=== PATIENT | female | born 1950 | race African-American/Black ===

== ENCOUNTER 2016-03-14 17:31 | Emergency (ER) | payer OTHER ==
[~2016-03-14] VITALS: Ht 157.5 cm; Wt 81.6 kg
[~2016-03-14 17:31] MED LIST: ALBU18; ALBU18 IN; CARI350T21; HYDR-3682 PO; HYDR12.56; METO-169; METO-169 PO; [UNRECOGNIZED DRUG - OTHER] PO
[2016-03-14 18:47] LABS: Basophils # (auto) 0 uL; Basophils % (auto) 0.4 % (0.0-2.0); Eosinophils # (auto) 0.1 uL; Eosinophils % (auto) 0.8 % (0.0-7.0); Hematocrit 37.1 % (36.0-46.0); Hemoglobin 12.3 g/dL (12.2-16.2); Lymphocytes # (auto) 1.7 uL; Lymphocytes % (auto) 24.8 % (10.0-50.0); Mean Corpuscular Hemoglobin 29.9 pg (28.0-32.0); Mean Corpuscular Hgb Conc. 33.1 g/dL (32.0-36.0); Mean Corpuscular Volume 90.3 fL (80.0-100.0); Mean Platelet Volume 10.6 fL (7.4-10.4); Monocytes # (auto) 0.9 uL; Monocytes % (auto) 12.9 % (0.0-12.0); Neutrophils # (auto) 4.2 uL; Neutrophils % (auto) 61.1 % (37.0-80.0); Platelet Count (auto) 165 10^3/uL (140-450); Red Cell Distribution Width 14.4 % (11.6-16.0); White Blood Cell 6.9 10^3/uL (4.4-10.8)
[2016-03-14 19:13] LABS: Albumin 3.3 g/dL (3.4-5.0); BUN/Creatinine Ratio 12.6; Magnesium 1.9 mg/dL (1.6-2.6); Potassium 3.2 mmol/L (3.5-5.1)
[2016-03-14 19:16] LABS: Bilirubin, Total 0.4 mg/dL (0.2-1.0); Total Protein 7.1 g/dL (6.4-8.2)
[2016-03-14] MEDS ORDERED: ALBUTEROL SULF 2.5 MG/0.5ML(0.5%) NEB SOLN NEB ONE (23:15)
[2016-03-14] MEDS ORDERED: IPRATROPIUM BROM 0.5 MG/2.5ML INH SOL NEB ONE (23:15)
[2016-03-15 03:35] VITALS: BP 146/82
== END 2016-03-15 03:38 | disposition home or self-care (01) ==
LOC: ER 17:37
DX: J45.909 Unspecified asthma, uncomplicated (principal); I10 Essential (primary) hypertension; R42 Dizziness and giddiness; R53.1 Weakness; F17.210 Nicotine dependence, cigarettes, uncomplicated; R05 Cough; Z76.0 Encounter for issue of repeat prescription; Z86.73 Personal history of transient ischemic attack (TIA), and cerebral infarction without residual deficits; Z79.899 Other long term (current) drug therapy
CPT/HCPCS: 36415; 71020; 80053; 83735; 84484; 85025; 93005; 94640

== ENCOUNTER 2016-03-15 15:45 | Emergency (ER) | payer OTHER ==
[~2016-03-15] VITALS: Ht 157.5 cm; Wt 77.1 kg
[2016-03-15] MEDS ORDERED: methylPREDNISolone SOD SUCC 125 MG/2 ML VL IV ONE (16:30)
[2016-03-15] MEDS ORDERED: NALBUPHINE HCL 10 MG/1ml INJECTION IV ONE (16:30)
[2016-03-15] MEDS ORDERED: IPRATROPIUM BROM 0.5 MG/2.5ML INH SOL NEB ONE (16:30)
[2016-03-15] MEDS ORDERED: ONDANSETRON HCL 4 MG/2 ML VIAL IV ONE (16:30)
[2016-03-15] MEDS ORDERED: ALBUTEROL SULF 2.5 MG/0.5ML(0.5%) NEB SOLN NEB ONE (16:30)
[2016-03-15 16:53] LABS: Basophils # (auto) 0 uL; Basophils % (auto) 0.5 % (0.0-2.0); Eosinophils # (auto) 0 uL; Eosinophils % (auto) 0.6 % (0.0-7.0); Hematocrit 35.9 % (36.0-46.0); Hemoglobin 12.1 g/dL (12.2-16.2); Lymphocytes # (auto) 1.9 uL; Lymphocytes % (auto) 22.8 % (10.0-50.0); Mean Corpuscular Hemoglobin 30.2 pg (28.0-32.0); Mean Corpuscular Hgb Conc. 33.8 g/dL (32.0-36.0); Mean Corpuscular Volume 89.3 fL (80.0-100.0); Mean Platelet Volume 11.3 fL (7.4-10.4); Monocytes # (auto) 0.9 uL; Monocytes % (auto) 11.4 % (0.0-12.0); Neutrophils # (auto) 5.3 uL; Neutrophils % (auto) 64.7 % (37.0-80.0); Platelet Count (auto) 151 10^3/uL (140-450); Red Cell Distribution Width 14.4 % (11.6-16.0); White Blood Cell 8.2 10^3/uL (4.4-10.8)
[2016-03-15 17:12] LABS: Albumin 3.2 g/dL (3.4-5.0); BUN/Creatinine Ratio 15.2; Calcium 8.2 mg/dL (8.5-10.1); Potassium 3.1 mmol/L (3.5-5.1)
[2016-03-15 17:15] LABS: Bilirubin, Total 0.3 mg/dL (0.2-1.0); Total Protein 6.9 g/dL (6.4-8.2)
[2016-03-15] MEDS ORDERED: POTASSIUM CHL 10% (20 MEQ/15ML) ORAL SOLN PO ONE (18:45)
[2016-03-15 18:57] VITALS: BP 138/87
== END 2016-03-15 20:07 | disposition home or self-care (01) ==
LOC: EDBD 15:45 → ER 15:50
DX: J45.909 Unspecified asthma, uncomplicated (principal); E87.6 Hypokalemia; I10 Essential (primary) hypertension; F17.210 Nicotine dependence, cigarettes, uncomplicated; Z98.890 Other specified postprocedural states; Z86.73 Personal history of transient ischemic attack (TIA), and cerebral infarction without residual deficits
CPT/HCPCS: 36415; 71010; 80053; 84484; 85025; 93005; 94640; 96374; 96375; 99285; J2300; J2405; J2930

== ENCOUNTER 2016-03-16 21:05 | Inpatient (IN) | payer OTHER ==
[~2016-03-16] VITALS: Ht 160 cm; Wt 83.1 kg
[2016-03-16 21:36] LABS: Basophils # (auto) 0 uL; Basophils % (auto) 0.2 % (0.0-2.0); Eosinophils # (auto) 0 uL; Hematocrit 40.9 % (36.0-46.0); Hemoglobin 13.3 g/dL (12.2-16.2); Lymphocytes # (auto) 2.4 uL; Lymphocytes % (auto) 17.2 % (10.0-50.0); Mean Corpuscular Hemoglobin 29.5 pg (28.0-32.0); Mean Corpuscular Hgb Conc. 32.5 g/dL (32.0-36.0); Mean Corpuscular Volume 90.7 fL (80.0-100.0); Mean Platelet Volume 11.1 fL (7.4-10.4); Monocytes % (auto) 7.4 % (0.0-12.0); Neutrophils # (auto) 10.3 uL; Neutrophils % (auto) 75.2 % (37.0-80.0); Platelet Count (auto) 177 10^3/uL (140-450); Red Cell Distribution Width 14.4 % (11.6-16.0); White Blood Cell 13.7 10^3/uL (4.4-10.8)
[2016-03-16] MEDS ORDERED: methylPREDNISolone SOD SUCC 125 MG/2 ML VL IV ONE (21:45)
[2016-03-16 21:48] LABS: INR 1.01 (0.9-1.15); Partial Thromboplastin Time 26.6 sec (22.64-33.71); Prothrombin Time 10.4 sec (9.37-12.3)
[2016-03-16 21:50] LABS: Albumin 3.5 g/dL (3.4-5.0); BUN/Creatinine Ratio 20.7; Calcium 8.6 mg/dL (8.5-10.1); Potassium 3.6 mmol/L (3.5-5.1)
[2016-03-16 21:53] LABS: Bilirubin, Total 0.3 mg/dL (0.2-1.0); Total Protein 7.9 g/dL (6.4-8.2)
[2016-03-17] VITALS (7 sets, daily range): BP systolic 157–179; BP diastolic 79–94
[2016-03-17] MEDS ORDERED: ALBUTEROL SULF 2.5 MG/0.5ML(0.5%) NEB SOLN NEB ONE ×2 (00:30)
[2016-03-17] MEDS ORDERED: IPRATROPIUM BROM 0.5 MG/2.5ML INH SOL NEB ONE ×2 (00:30)
[2016-03-17 01:03] LABS: Urine Bilirubin Negative (Negative); Urine Blood TRACE /uL (Negative); Urine Color Yellow (Yellow); Urine Glucose Normal (Normal); Urine Ketone Negative (Negative); Urine Mucus FEW (None Seen); Urine Nitrite Negative (Negative); Urine RBC 3 /hpf (0 - 4); Urine Squamous Epithelial Cell FEW /hpf (<5); Urine Urobilinogen Normal (Negative); Urine pH 5.5 (5.0-8.0)
[2016-03-17] MEDS ORDERED: ASPirin 81 mg TAB PO ONE (01:45)
[2016-03-17] MEDS ORDERED: DOCUSATE SOD 100 MG CAP PO PRN (04:15)
[2016-03-17] MEDS ORDERED: cefTRIAXone 1GM/50ML D5W 50 ML IV ONE (04:15)
[2016-03-17] MEDS ORDERED: ONDANSETRON HCL 4 MG/2 ML VIAL IV PRN (04:15)
[2016-03-17] MEDS ORDERED: CARISOPRODOL 350 MG TAB PO PRN (04:15)
[2016-03-17] MEDS ORDERED: ACETAMINOPHEN 325 MG TAB PO PRN (04:15)
[2016-03-17] MEDS ORDERED: TEMAZEPAM 15 MG CAP PO PRN (04:15)
[2016-03-17] MEDS: HYDROcodone-ACET 5/325MG TAB PO PRN ×3 (04:33→18:09)
[2016-03-17] MEDS: IPRATROPIUM BROM 0.5 MG/2.5ML INH SOL NEB PRN ×3 (04:45→21:20)
[2016-03-17] MEDS: ALBUTEROL SULF 2.5 MG/0.5ML(0.5%) NEB SOLN NEB PRN ×3 (04:46→21:20)
[2016-03-17] MEDS: METOPROLOL SUCCINATE XL 50 MG TAB PO SCH (09:02)
[2016-03-17] MEDS: HCTZ 25 MG TAB PO SCH (09:02)
[2016-03-17] MEDS: ENOXAPARIN SOD 40 MG/0.4 ML SYRINGE SC SCH (09:03)
[2016-03-17] MEDS: FAMOTIDINE 20 MG TAB PO SCH ×2 (09:03→21:15)
[2016-03-17] MEDS: methylPREDNISolone SOD SUCC 125 MG/2 ML VL IV SCH ×2 (09:03→21:14)
[2016-03-17] MEDS: BUDESONIDE (INHALATION) 0.5 MG/2 ML NEB NEB SCH (20:48)
[2016-03-17] MEDS: ZOLPIDEM TARTRATE 5 MG TAB PO PRN (21:17)
[2016-03-18] MEDS: ZOLPIDEM TARTRATE 5 MG TAB PO PRN (00:09)
[2016-03-18 05:56] VITALS: BP_SYST 159; BP_SYST 162; BP_DIAS 84; BP_DIAS 87
[2016-03-18 06:08] LABS: Basophils # (auto) 0 uL; Basophils % (auto) 0.3 % (0.0-2.0); Eosinophils # (auto) 0 uL; Hematocrit 37.7 % (36.0-46.0); Hemoglobin 12.5 g/dL (12.2-16.2); Lymphocytes # (auto) 1.1 uL; Lymphocytes % (auto) 9.1 % (10.0-50.0); Mean Corpuscular Hemoglobin 30.3 pg (28.0-32.0); Mean Corpuscular Hgb Conc. 33.2 g/dL (32.0-36.0); Mean Corpuscular Volume 91.4 fL (80.0-100.0); Mean Platelet Volume 11.6 fL (7.4-10.4); Monocytes # (auto) 0.6 uL; Monocytes % (auto) 4.7 % (0.0-12.0); Neutrophils # (auto) 10.2 uL; Neutrophils % (auto) 85.9 % (37.0-80.0); Platelet Count (auto) 164 10^3/uL (140-450); Red Cell Distribution Width 13.5 % (11.6-16.0); SUSPECT VIEW TRANSMISSION; White Blood Cell 11.9 10^3/uL (4.4-10.8)
[2016-03-18 06:39] LABS: Potassium 4.4 mmol/L (3.5-5.1)
[2016-03-18 06:47] LABS: Albumin 3.2 g/dL (3.4-5.0); BUN/Creatinine Ratio 21.5; Calcium 8.7 mg/dL (8.5-10.1)
[2016-03-18] MEDS: IPRATROPIUM BROM 0.5 MG/2.5ML INH SOL NEB PRN ×3 (06:58→19:08)
[2016-03-18] MEDS: ALBUTEROL SULF 2.5 MG/0.5ML(0.5%) NEB SOLN NEB PRN ×3 (06:58→19:08)
[2016-03-18] MEDS: BUDESONIDE (INHALATION) 0.5 MG/2 ML NEB NEB SCH ×2 (06:58→19:08)
[2016-03-18 06:59] LABS: Bilirubin, Total 0.2 mg/dL (0.2-1.0); Total Protein 7.1 g/dL (6.4-8.2)
[2016-03-18 08:27] VITALS: BP 162/86
[2016-03-18] MEDS: HCTZ 25 MG TAB PO SCH (11:41)
[2016-03-18] MEDS: METOPROLOL SUCCINATE XL 50 MG TAB PO SCH (11:41)
[2016-03-18] MEDS: methylPREDNISolone SOD SUCC 125 MG/2 ML VL IV SCH ×2 (11:42→22:15)
[2016-03-18] MEDS: FAMOTIDINE 20 MG TAB PO SCH ×2 (11:42→22:15)
[2016-03-18] MEDS: cefTRIAXone 1GM/50ML D5W 50 ML IV SCH (11:43)
[2016-03-18] MEDS: ENOXAPARIN SOD 40 MG/0.4 ML SYRINGE SC SCH (11:43)
[2016-03-18 13:00] VITALS: BP 184/95
[2016-03-18] MEDS: HYDROcodone-ACET 10/325MG TAB PO PRN ×2 (16:10→20:15)
[2016-03-18 17:03] VITALS: BP 198/100
[2016-03-18] MEDS ORDERED: hydrALAZINE HCL 20 MG/ML VL IV PRN (17:30)
[2016-03-18 22:00] VITALS: BP 142/75
[2016-03-19 05:00] VITALS: BP 157/80
[2016-03-19] MEDS: IPRATROPIUM BROM 0.5 MG/2.5ML INH SOL NEB PRN (07:44)
[2016-03-19] MEDS: BUDESONIDE (INHALATION) 0.5 MG/2 ML NEB NEB SCH (07:44)
[2016-03-19] MEDS: ALBUTEROL SULF 2.5 MG/0.5ML(0.5%) NEB SOLN NEB PRN (07:44)
[2016-03-19] MEDS: cefTRIAXone 1GM/50ML D5W 50 ML IV SCH (08:36)
[2016-03-19] MEDS: HCTZ 25 MG TAB PO SCH (08:37)
[2016-03-19] MEDS: FAMOTIDINE 20 MG TAB PO SCH (08:37)
[2016-03-19] MEDS: methylPREDNISolone SOD SUCC 125 MG/2 ML VL IV SCH (08:38)
[2016-03-19] MEDS: METOPROLOL SUCCINATE XL 50 MG TAB PO SCH (08:38)
[2016-03-19] MEDS: ENOXAPARIN SOD 40 MG/0.4 ML SYRINGE SC SCH (08:38)
[2016-03-19 08:54] VITALS: BP 182/92
[2016-03-19 09:20] VITALS: BP 158/82
[2016-03-19] MEDS: HYDROcodone-ACET 10/325MG TAB PO PRN (09:31)
[2016-03-19 10:45] VITALS: BP 158/82
== END 2016-03-19 18:05 | disposition home or self-care (01) | DRG 133 ==
LOC: EDBD 21:05 → ER 21:09 → OVERFLOW 21:10 → WEST WING 03-17 05:18 → TELE-WESTW 03-18 21:07
PROVIDERS: ADMIT Nurse Practitioner; ATTEND Internal Medicine
DX: J96.00 Acute respiratory failure, unspecified whether with hypoxia or hypercapnia (principal); J44.0 Chronic obstructive pulmonary disease with (acute) lower respiratory infection; J45.901 Unspecified asthma with (acute) exacerbation; I11.9 Hypertensive heart disease without heart failure; J44.1 Chronic obstructive pulmonary disease with (acute) exacerbation; N39.0 Urinary tract infection, site not specified; J20.9 Acute bronchitis, unspecified; I73.9 Peripheral vascular disease, unspecified; F17.210 Nicotine dependence, cigarettes, uncomplicated; Z86.73 Personal history of transient ischemic attack (TIA), and cerebral infarction without residual deficits; Z83.3 Family history of diabetes mellitus; Z82.49 Family history of ischemic heart disease and other diseases of the circulatory system; Z98.890 Other specified postprocedural states
CPT/HCPCS: 36415; 70450; 71010; 80053; 81001; 83880; 84484; 85025; 85610; 85730; 87086; 93005; 94640; 96365; 96375; J0696

== ENCOUNTER 2016-07-23 22:46 | Emergency (ER) | payer OTHER ==
[~2016-07-23] VITALS: Ht 157.5 cm; Wt 77.1 kg
[2016-07-23 22:56] VITALS: BP 182/92
[2016-07-23] MEDS ORDERED: cloNIDine HCL 0.1 MG TAB ONE (22:56)
[2016-07-23] MEDS ORDERED: cloNIDine HCL 0.1 MG TAB PO ONE (23:15)
[2016-07-23 23:27] LABS: Basophils # (auto) 0.1 uL; Basophils % (auto) 0.7 % (0.0-2.0); Eosinophils # (auto) 0.2 uL; Eosinophils % (auto) 2.5 % (0.0-7.0); Hematocrit 40.5 % (36.0-46.0); Hemoglobin 13.7 g/dL (12.2-16.2); Lymphocytes # (auto) 3.5 uL; Lymphocytes % (auto) 34.9 % (10.0-50.0); Mean Corpuscular Hemoglobin 30.7 pg (28.0-32.0); Mean Corpuscular Hgb Conc. 33.9 g/dL (32.0-36.0); Mean Corpuscular Volume 90.6 fL (80.0-100.0); Mean Platelet Volume 11.4 fL (7.4-10.4); Monocytes # (auto) 0.9 uL; Monocytes % (auto) 9.1 % (0.0-12.0); Neutrophils # (auto) 5.3 uL; Neutrophils % (auto) 52.8 % (37.0-80.0); Platelet Count (auto) 199 10^3/uL (140-450); Red Cell Distribution Width 14.2 % (11.6-16.0); White Blood Cell 10.1 10^3/uL (4.4-10.8)
[2016-07-23 23:42] LABS: INR 0.95 (0.9-1.15); Partial Thromboplastin Time 27.6 sec (22.64-33.71); Prothrombin Time 10.4 sec (9.37-12.3)
[2016-07-23 23:44] LABS: Albumin 3.6 g/dL (3.4-5.0); Anion Gap 4 (5-15); Aspartate Aminotransferase 29 U/L (15-37); BUN/Creatinine Ratio 14.7; Blood Urea Nitrogen 15 mg/dL (7-18); Calcium 8.2 mg/dL (8.5-10.1); Carbon Dioxide 31 mmol/L (21-32); Chloride 110 mmol/L (98-107); GFR African American 70 mL/min; GFR Non-African American 58 mL/min; Glucose 93 mg/dL (74-106); Potassium 3.9 mmol/L (3.5-5.1); Sodium 145 mmol/L (136-145)
[2016-07-23 23:50] LABS: Alkaline Phosphatase 73 U/L (45-117); Bilirubin, Total 0.3 mg/dL (0.2-1.0); Total Protein 7.2 g/dL (6.4-8.2)
[2016-07-24 02:50] LABS: Urine Bilirubin Negative (Negative); Urine Blood Negative /uL (Negative); Urine Color Yellow (Yellow); Urine Glucose Normal (Normal); Urine Ketone Negative (Negative); Urine Nitrite Negative (Negative); Urine RBC 16 /hpf (0 - 4); Urine Squamous Epithelial Cell MOD /hpf (<5); Urine Urobilinogen Normal (Negative)
[2016-07-27] MEDS ORDERED: LISI-275 PO (10:24)
== END 2016-07-24 00:28 | disposition left against medical advice (07) ==
LOC: ER 22:46
DX: R06.02 Shortness of breath (principal); Z53.21 Procedure and treatment not carried out due to patient leaving prior to being seen by health care provider
CPT/HCPCS: 36415; 71020; 80053; 81001; 83735; 84484; 85025; 85379; 85610; 85730; 93005

== ENCOUNTER 2017-10-10 16:26 | Emergency (ER) | payer MEDICARE, OTHER ==
[~2017-10-10] VITALS: Ht 160 cm; Wt 68.5 kg
[~2017-10-10 16:26] MED LIST changes: +CARI-316; -CARI350T21; +LISI-275 PO
[2017-10-10 16:34] VITALS: BP 179/92
[2017-10-10] MEDS ORDERED: cloNIDine HCL 0.1 MG TAB PO ONE (20:45)
== END 2017-10-10 21:03 | disposition home or self-care (01) ==
LOC: ER 16:26
DX: M54.2 Cervicalgia (principal); J45.909 Unspecified asthma, uncomplicated; I10 Essential (primary) hypertension; F17.210 Nicotine dependence, cigarettes, uncomplicated; Z79.899 Other long term (current) drug therapy; Z86.73 Personal history of transient ischemic attack (TIA), and cerebral infarction without residual deficits

== ENCOUNTER 2018-06-28 08:31 | Emergency (ER) | payer MEDICARE, OTHER ==
[~2018-06-28] VITALS: Ht 157.5 cm; Wt 77.1 kg
[~2018-06-28 08:31] MED LIST changes: -CARI-316; +CARI350T22
[2018-06-28 08:37] VITALS: BP 157/72
[2018-06-28 09:55] LABS: Urine Bacteria FEW /hpf (None Seen); Urine Blood Negative /uL (Negative); Urine Specific Gravity 1.009 (1.001-1.035); Urine WBC 9 /hpf (0 - 5)
== END 2018-06-28 10:32 | disposition home or self-care (01) ==
LOC: ER 08:31
DX: N39.0 Urinary tract infection, site not specified (principal); J45.909 Unspecified asthma, uncomplicated; I10 Essential (primary) hypertension; F17.210 Nicotine dependence, cigarettes, uncomplicated; Z86.73 Personal history of transient ischemic attack (TIA), and cerebral infarction without residual deficits; Z79.899 Other long term (current) drug therapy; Z88.8 Allergy status to other drugs, medicaments and biological substances
CPT/HCPCS: 74176; 81001; 87086

== ENCOUNTER 2018-07-20 13:02 | Emergency (ER) | payer MEDICARE, OTHER ==
[~2018-07-20] VITALS: Ht 157.5 cm; Wt 77.1 kg
[~2018-07-20 13:02] MED LIST changes: -LISI-275 PO
[2018-07-20 14:32] VITALS: BP 156/78
[2018-07-20] MEDS: methylPREDNISolone SOD SUCC 125 MG/2 ML VL IV ONE ×2 (15:15→16:00)
[2018-07-20] MEDS: diphenhdrAMINE HCL 50 MG/1 ML VL IV ONE ×2 (15:15→16:00)
== END 2018-07-20 16:37 | disposition home or self-care (01) ==
LOC: ER 13:02 → EDBD 13:02 → ER 16:37
DX: T78.1XXA Other adverse food reactions, not elsewhere classified, initial encounter (principal); R22.0 Localized swelling, mass and lump, head; J45.909 Unspecified asthma, uncomplicated; I10 Essential (primary) hypertension; F17.210 Nicotine dependence, cigarettes, uncomplicated; R42 Dizziness and giddiness; Z79.899 Other long term (current) drug therapy; Z86.73 Personal history of transient ischemic attack (TIA), and cerebral infarction without residual deficits; Z91.018 Allergy to other foods; X58.XXXA Exposure to other specified factors, initial encounter
CPT/HCPCS: 96374; 96375; 99283; J1200; J2930

== ENCOUNTER 2018-12-08 17:41 | Emergency (ER) | payer MEDICARE, OTHER ==
[~2018-12-08] VITALS: Ht 157.5 cm; Wt 78.0 kg
[2018-12-08] MEDS ORDERED: DexAMETHasone SOD PHOS 10MG/1ML VIAL INJ IM ONE (20:30)
[2018-12-08 20:47] VITALS: BP 145/81
== END 2018-12-08 20:58 | disposition home or self-care (01) ==
LOC: ER 17:41 → EDBD 17:41 → ER 20:58
DX: T78.40XA Allergy, unspecified, initial encounter (principal); L50.0 Allergic urticaria; J45.909 Unspecified asthma, uncomplicated; I10 Essential (primary) hypertension; F17.210 Nicotine dependence, cigarettes, uncomplicated; Z86.73 Personal history of transient ischemic attack (TIA), and cerebral infarction without residual deficits; Z79.899 Other long term (current) drug therapy; X58.XXXA Exposure to other specified factors, initial encounter
CPT/HCPCS: 96372; 99283; J1100

== ENCOUNTER 2020-06-17 18:49 | Inpatient (IN) | payer MEDICARE, OTHER ==
[~2020-06-17] VITALS: Ht 162.6 cm; Wt 79.6 kg
[2020-06-17 20:56] LABS: Basophils # (auto) 0.1 10 ^3/uL (0-0.2); Basophils % (auto) 0.7 % (0.0-2.0); Eosinophils # (auto) 0.3 10 ^3/uL (0-0.8); Eosinophils % (auto) 2.4 % (0.0-7.0); Hematocrit 44.2 % (36.0-46.0); Lymphocytes % (auto) 36.9 % (10.0-50.0); Mean Corpuscular Hemoglobin 31.2 pg (28.0-32.0); Mean Corpuscular Hgb Conc. 33.8 g/dL (32.0-36.0); Mean Corpuscular Volume 92.2 fL (80.0-100.0); Monocytes # (auto) 0.9 10 ^3/uL (0-1.3); Monocytes % (auto) 8.5 % (0.0-12.0); Neutrophils # (auto) 5.5 10 ^3/uL (1.6-8.6); Neutrophils % (auto) 51.5 % (37.0-80.0); Nucleated Red Blood Cells % 0.2 %; Platelet Count (auto) 224 10^3/uL (140-450); Red Cell Distribution Width 14.6 % (11.8-14.3); White Blood Cell 10.7 10^3/uL (4.4-10.8)
[2020-06-17 21:18] LABS: Alanine Aminotransferase 26 U/L (13-56); Albumin 3.9 g/dL (3.4-5.0); Anion Gap 7 (5-15); Blood Urea Nitrogen 28 mg/dL (7-18); Calcium 9.3 mg/dL (8.5-10.1); Carbon Dioxide 25 mmol/L (21-32); Chloride 108 mmol/L (98-107); Glucose 88 mg/dL (74-106); Potassium 3.8 mmol/L (3.5-5.1); Sodium 140 mmol/L (136-145)
[2020-06-17 21:22] LABS: Alkaline Phosphatase 62 U/L (45-117); Aspartate Aminotransferase 16 U/L (15-37); BUN/Creatinine Ratio 27.2; Bilirubin, Total 0.4 mg/dL (0.2-1.0); GFR African American 69 mL/min; GFR Non-African American 57 mL/min; Total Protein 7.9 g/dL (6.4-8.2)
[2020-06-17] MEDS ORDERED: ASPirin 81 mg TAB PO ONE (21:30)
[2020-06-18] VITALS (7 sets, daily range): BP systolic 119–146; BP diastolic 68–83
[2020-06-18] MEDS ORDERED: ONDANSETRON HCL 4 MG/2 ML VIAL IV PRN (01:00)
[2020-06-18] MEDS ORDERED: ALBUTEROL SULF 2.5 MG/0.5ML(0.5%) NEB SOLN NEB PRN (01:00)
[2020-06-18] MEDS ORDERED: NITROGLYCERIN 0.4 MG SL TAB SL PRN (01:00)
[2020-06-18] MEDS ORDERED: TEMAZEPAM 15 MG CAP PO PRN (01:00)
[2020-06-18] MEDS ORDERED: MORPHINE SULF INJ 2 MG/ML SYRINGE 1ML IV PRN (01:00)
[2020-06-18] MEDS: PANTOPRAZOLE 40 MG TAB PO SCH (09:55)
[2020-06-18] MEDS: AZITHROMYCIN 500MG/ 250ML 250 ML IV SCH (09:55)
[2020-06-18] MEDS: ENOXAPARIN SOD 40 MG/0.4 ML SYRINGE SC SCH (09:56)
[2020-06-18] MEDS: METOPROLOL SUCCINATE XL 50 MG TAB PO SCH (09:56)
[2020-06-18] MEDS ORDERED: ASPirin 81 mg TAB PO SCH (10:00)
[2020-06-18] MEDS ORDERED: LORazepam 2MG/ML-1ML VIAL IV PRN (10:15)
[2020-06-18] MEDS: ATORVASTATIN 20 MG TAB PO SCH ×2 (10:34→21:23)
[2020-06-18] MEDS ORDERED: FLUT1AER3 INH (10:58)
[2020-06-18] MEDS ORDERED: MET50T PO (10:58)
[2020-06-18] MEDS ORDERED: ALBU108A5 INH (10:58)
[2020-06-18] MEDS ORDERED: LISI-646 PO (10:58)
[2020-06-18 11:07] LABS: Cholesterol 142 mg/dL (< 200); HDL Cholesterol 37 mg/dL (40-59); LDL Cholesterol 76 mg/dL (< 100); Triglycerides 185 mg/dL (< 150)
[2020-06-18] MEDS ORDERED: GADOTERATE MEG 10 MMOL/20ml INJ (0.5MMOL/ml) IV ONE (12:55)
[2020-06-18] MEDS ORDERED: ATORVASTATIN 20 MG TAB PO SCH (22:00)
[2020-06-19 05:28] VITALS: BP 147/80
[2020-06-19 07:12] LABS: Basophils # (auto) 0 10 ^3/uL (0-0.2); Basophils % (auto) 0.6 % (0.0-2.0); Eosinophils # (auto) 0.2 10 ^3/uL (0-0.8); Eosinophils % (auto) 2.8 % (0.0-7.0); Hematocrit 42.7 % (36.0-46.0); Hemoglobin 14.4 g/dL (12.2-16.2); Lymphocytes # (auto) 2.6 10 ^3/uL (0.4-5.4); Lymphocytes % (auto) 36.7 % (10.0-50.0); Mean Corpuscular Hemoglobin 31.1 pg (28.0-32.0); Mean Corpuscular Hgb Conc. 33.7 g/dL (32.0-36.0); Mean Corpuscular Volume 92.1 fL (80.0-100.0); Monocytes # (auto) 0.7 10 ^3/uL (0-1.3); Monocytes % (auto) 9.8 % (0.0-12.0); Neutrophils # (auto) 3.5 10 ^3/uL (1.6-8.6); Neutrophils % (auto) 50.1 % (37.0-80.0); Nucleated Red Blood Cells % 0.2 %; Platelet Count (auto) 185 10^3/uL (140-450); Red Blood Cells 4.63 10^6/uL (4.0-5.20); Red Cell Distribution Width 14.7 % (11.8-14.3)
[2020-06-19 07:50] LABS: Calcium 9.1 mg/dL (8.5-10.1)
[2020-06-19 09:23] VITALS: BP 146/87
[2020-06-19] MEDS: AZITHROMYCIN 500MG/ 250ML 250 ML IV SCH (10:16)
[2020-06-19] MEDS: ASPirin 81 mg TAB PO SCH (10:16)
[2020-06-19] MEDS: CLOPIDOGREL BISULFATE 75 MG TAB PO SCH (10:16)
[2020-06-19] MEDS: PANTOPRAZOLE 40 MG TAB PO SCH (10:17)
[2020-06-19] MEDS: METOPROLOL SUCCINATE XL 50 MG TAB PO SCH (10:18)
[2020-06-19] MEDS: ENOXAPARIN SOD 40 MG/0.4 ML SYRINGE SC SCH (10:18)
[2020-06-19 13:00] VITALS: BP 135/82
[2020-06-19] MEDS ORDERED: diphenhdrAMINE HCL 25 MG CAP PO PRN (13:45)
[2020-06-19 17:00] VITALS: BP 137/94
[2020-06-19] MEDS: ATORVASTATIN 20 MG TAB PO SCH (21:30)
[2020-06-19] MEDS: ACETAMINOPHEN 325 MG TAB PO PRN (21:39)
[2020-06-19 21:48] VITALS: BP 134/80
[2020-06-20 05:00] VITALS: BP 125/61
[2020-06-20 07:36] LABS: INR 0.98 (0.9-1.15); Partial Thromboplastin Time 27.6 sec (23.0-31.2)
[2020-06-20 09:00] VITALS: BP 137/69
[2020-06-20] MEDS: METOPROLOL SUCCINATE XL 50 MG TAB PO SCH (10:00)
[2020-06-20] MEDS: ASPirin 81 mg TAB PO SCH (10:19)
[2020-06-20] MEDS: AZITHROMYCIN 500MG/ 250ML 250 ML IV SCH (10:19)
[2020-06-20] MEDS: PANTOPRAZOLE 40 MG TAB PO SCH (10:19)
[2020-06-20] MEDS: CLOPIDOGREL BISULFATE 75 MG TAB PO SCH (10:19)
[2020-06-20] MEDS: ENOXAPARIN SOD 40 MG/0.4 ML SYRINGE SC SCH (11:06)
[2020-06-20] MEDS ORDERED: diphenhdrAMINE HCL 50 MG/1 ML VL IV ONE (11:30)
[2020-06-20] MEDS ORDERED: MIDAZOLAM HCL 5 MG/ML-1ML VIAL IV ONE (11:30)
[2020-06-20] MEDS ORDERED: fentaNYL CITRATE 100 MCG/2 ML VL IV ONE (11:30)
[2020-06-20] MEDS ORDERED: MIDAZOLAM HCL 1MG/1ML-2 ML VIAL IV ONE (13:15)
[2020-06-20 17:00] VITALS: BP 149/84
[2020-06-20 18:59] VITALS: BP 149/84
[2020-06-20] MEDS: ACETAMINOPHEN 325 MG TAB PO PRN (19:27)
[2020-06-20] MEDS: ATORVASTATIN 20 MG TAB PO SCH (21:24)
[2020-06-20 22:00] VITALS: BP 154/82
[2020-06-21 05:00] VITALS: BP 149/75
[2020-06-21] MEDS: ACETAMINOPHEN 325 MG TAB PO PRN (06:56)
[2020-06-21 09:00] VITALS: BP 157/73
[2020-06-21] MEDS: ENOXAPARIN SOD 40 MG/0.4 ML SYRINGE SC SCH (09:37)
[2020-06-21] MEDS: PANTOPRAZOLE 40 MG TAB PO SCH (09:37)
[2020-06-21] MEDS: CLOPIDOGREL BISULFATE 75 MG TAB PO SCH (09:37)
[2020-06-21] MEDS: ASPirin 81 mg TAB PO SCH (09:37)
[2020-06-21] MEDS: METOPROLOL SUCCINATE XL 50 MG TAB PO SCH (09:39)
[2020-06-21 09:45] VITALS: BP 157/73
[2020-06-21] MEDS ORDERED: AZITHROMYCIN 250 MG TAB PO SCH (10:00)
== END 2020-06-21 10:25 | disposition home or self-care (01) | DRG 64 ==
LOC: ER 18:49 → TELE 06-18 00:50 → TELE-EAST 06-18 03:21
PROVIDERS: ADMIT Nurse Practitioner; ATTEND Family Medicine
PROC: B24BZZ4 Ultrasonography of Heart with Aorta, Transesophageal (ICD-10-PCS; principal; 2020-06-20)
DX: I63.512 Cerebral infarction due to unspecified occlusion or stenosis of left middle cerebral artery (principal); J18.9 Pneumonia, unspecified organism; H53.121 Transient visual loss, right eye; G81.91 Hemiplegia, unspecified affecting right dominant side; N18.9 Chronic kidney disease, unspecified; F12.90 Cannabis use, unspecified, uncomplicated; F17.210 Nicotine dependence, cigarettes, uncomplicated; I12.9 Hypertensive chronic kidney disease with stage 1 through stage 4 chronic kidney disease, or unspecified chronic kidney disease; J45.909 Unspecified asthma, uncomplicated; Z20.822 Contact with and (suspected) exposure to COVID-19; Z79.02 Long term (current) use of antithrombotics/antiplatelets; Z79.82 Long term (current) use of aspirin; Z80.0 Family history of malignant neoplasm of digestive organs; Z82.3 Family history of stroke; Z82.49 Family history of ischemic heart disease and other diseases of the circulatory system; Z83.3 Family history of diabetes mellitus; Z86.73 Personal history of transient ischemic attack (TIA), and cerebral infarction without residual deficits
CPT/HCPCS: 36415; 70450; 70545; 70551; 71045; 80048; 80053; 80061; 84484; 85025; 85610; 85730; 86850; 86900; 86901; 87426; 93005; 93312; 93886; 96365; 99152; G0378; J2250

== ENCOUNTER 2022-05-21 10:01 | Emergency (ER) | payer OTHER ==
[~2022-05-21] VITALS: Ht 157.5 cm; Wt 66.0 kg
[~2022-05-21 10:01] MED LIST changes: +ALBU108A5 INH; -ALBU18; -ALBU18 IN; -CARI350T22; +FLUT1AER3 INH; -HYDR-3682 PO; -HYDR12.56; +LISI20TA28 PO; +MET50T PO; -METO-169; -METO-169 PO; -[UNRECOGNIZED DRUG - OTHER] PO
[2022-05-21 10:37] VITALS: BP 186/86
[2022-05-21] MEDS ORDERED: methylPREDNISolone SOD SUCC 125 MG/2 ML VL IM ONE (10:45)
[2022-05-21] MEDS ORDERED: diphenhdrAMINE HCL 50 MG/1 ML VL IM ONE (10:45)
[2022-05-21] MEDS ORDERED: METH4PAK PO (11:09)
== END 2022-05-21 11:13 | disposition home or self-care (01) ==
LOC: ER 10:01
DX: T78.40XA Allergy, unspecified, initial encounter (principal); I10 Essential (primary) hypertension; J45.909 Unspecified asthma, uncomplicated; F17.210 Nicotine dependence, cigarettes, uncomplicated; Z86.73 Personal history of transient ischemic attack (TIA), and cerebral infarction without residual deficits; Z79.899 Other long term (current) drug therapy; Z88.8 Allergy status to other drugs, medicaments and biological substances; Z91.018 Allergy to other foods; Y92.89 Other specified places as the place of occurrence of the external cause
CPT/HCPCS: 96372; 99284; J1200; J2930

== ENCOUNTER 2022-06-04 16:37 | Emergency (ER) | payer OTHER ==
[~2022-06-04] VITALS: Ht 147.3 cm; Wt 73.0 kg
[~2022-06-04 16:37] MED LIST changes: +METH4PAK PO
[2022-06-04] MEDS ORDERED: ACET-1080 PO (18:10)
[2022-06-04 18:11] VITALS: BP 186/90
[2022-06-04] MEDS ORDERED: ACETAMINOPHEN 500 MG TAB PO ONE (18:15)
== END 2022-06-04 18:31 | disposition home or self-care (01) ==
LOC: ER 16:37
DX: S62.635A Displaced fracture of distal phalanx of left ring finger, initial encounter for closed fracture (principal); J45.909 Unspecified asthma, uncomplicated; I10 Essential (primary) hypertension; F17.210 Nicotine dependence, cigarettes, uncomplicated; F12.10 Cannabis abuse, uncomplicated; Z86.73 Personal history of transient ischemic attack (TIA), and cerebral infarction without residual deficits; W20.8XXA Other cause of strike by thrown, projected or falling object, initial encounter; Y93.89 Activity, other specified; Y92.89 Other specified places as the place of occurrence of the external cause; Y99.8 Other external cause status
CPT/HCPCS: 29130; 73130

== ENCOUNTER 2024-10-27 20:33 | Emergency (ER) | payer OTHER ==
[~2024-10-27] VITALS: Ht 157.5 cm; Wt 77.2 kg
[2024-10-27 20:33] VITALS: BP 155/92; TEMP 98.8
[~2024-10-27 20:33] MED LIST changes: +ACET-1080 PO; -LISI20TA28 PO; +LISI20TA56 PO
[2024-10-27 20:37] VITALS: PULSE 91
[2024-10-27] MEDS: ALBUTEROL SULF 2.5 MG/0.5ML(0.5%) NEB SOLN NEB ONE (21:52)
[2024-10-27] MEDS: IPRATROPIUM BROM 0.5 MG/2.5ML INH SOL NEB ONE (21:52)
[2024-10-27 22:03] VITALS: RESP 18; O2SAT 96
[2024-10-27 22:08] LABS: Hematocrit 44.8 % (36.0-46.0); Hemoglobin 15.2 g/dL (12.2-16.2); Mean Corpuscular Hemoglobin 30.4 pg (28.0-32.0); Mean Corpuscular Volume 89.6 fL (80.0-100.0); Nucleated Red Blood Cells % 0.1 %
--- NOTE | 2024-10-27 22:14 | DVH ---
INDICATION: sob TECHNIQUE: Frontal view of the chest. COMPARISON: TRANSESOPH ECHOCARDIOGRAM on DOS: 06/20/20, CHEST XRAY 1 VIEW on DOS: 06/17/20 FINDINGS/IMPRESSION: The lungs are clear. The cardiomediastinal silhouette is unremarkable. No pleural effusion or pneumo thorax. No acute osseous abnormality.
[2024-10-27 22:25] LABS: Alanine Aminotransferase 17 U/L (7-40); Alkaline Phosphatase 55 U/L (46-116); Anion Gap 7 (5-15); BUN/Creatinine Ratio 28.7 (10.0-20.0); Calcium 9.9 mg/dL (8.7-10.4); Carbon Dioxide 29 mmol/L (20-31); Chloride 107 mmol/L (98-107); Glucose 100 mg/dL (74-106); Potassium 4.0 mmol/L (3.5-5.1); Sodium 143 mmol/L (136-145); Total Protein 8.0 g/dL (5.7-8.2)
[2024-10-27 22:26] LABS: Bilirubin, Total 0.7 mg/dL (0.2-1.0)
[2024-10-27 22:33] LABS: Albumin 4.8 g/dL (3.2-4.8); Blood Urea Nitrogen 27 mg/dL (9-23)
--- NOTE | 2024-10-27 23:05 | ED.PDOC ---
SOB-HPI HPI Comments HPI: 74-year-old female who came to ER for shortness a breath. Patient does have history of asthma and COPD, on home oxygen at 2 L/min. States he has been short of breath for the past 2 days. Ran out of her albuterol inhalers yesterday. Shortness a breath prompted patient to come to the ER. Patient admits to still smoke cigarettes. Initial Vitals BP: 155/92 HR: 92 RR: 20 O2: 94% Temp: 98.8 Past Medical History: Asthma, COPD, hypertension Past Surgical History: Social History: Denies ETOH, (+) smoking, and drug use. Medications: Allergies: HPI: Poor Historian. Shortness of breath since she ran out of her nebulizer at home two days ago. Patient states she has the medicine refill in the pharmacy that she has not picked it up yet. Patient continues to smoke. Patient was reassessed after the breathing treatment by ambulance and here in the ED and she feels significantly better and back to her normal self. Patient uses 2 L nasal cannula at home. REVIEW OF SYSTEMS: CONSTITUTIONAL: Denies acute: fever, diaphoresis, chills, generalized weakness. HEAD: Denies acute: headache, photophobia Eyes: Denies acute: Double vision, vision loss, eye pain, eye discharge. EARS: Denies acute: tinnitus, hearing loss, ear discharge, ear pain, THROAT: Denies acute: sore throat, swelling, difficulty swallowing , pain with swallowing, change in voice. NECK: Denies acute: neck pain, neck swelling, stiff neck. HEART: Denies acute : chest pain, palpitations, LUNGS: Denies acute: , cough, hemoptysis ABDOMEN: Denies acute: abdominal pain, Nausea, Vomiting, diarrhea, melena , hematemesis, hematochezia SKIN: Denies acute: rash, redness, lesions, itchiness. EXTREMITIES: Denies acute: calf pain, numbness, tingling, weakness, denies pain in extremity. Denies acute: Low back pain. Neuro: Denies acute: focal neurological deficit, motor or sensory focal neurological deficit, tremors, seizure like activity, confusion, dizziness, change in mental status, loss of bowel or bladder function, cauda equina like symptoms. : Denies acute: dysuria, hematuria, flank pain, increase in urinary frequency. PSYCH: Denies acute: hallucination, suicidal ideation, homicidal ideation. FEMALE: Denies acute: abnormal vaginal bleeding, foul odor, unusual discharge. PHYSICAL EXAM: General: ---no-----acute distress, awake and alert. Head: normocephalic, atraumatic. Neck: supple, trachea is midline, no swelling. Throat: Normal phonation. Eyes:, no erythema, no purulent discharge, no proptosis, no icterus. Heart: regular rate, regular rhythm, no significant murmur appreciated. Lungs: no apparent respiratory distress, Able to speak in full sentences. Minimal wheezing, no rhonchi, no crackles. No stridors Clear to auscultation bilaterally. Abdomen: non tender to palpation, non distended, soft, no guarding, no rebound, + bowel sounds. Neuro: Awake, Alert, oriented to name, self, situation, follows commands GCS=15. Speech is normal. Skin: no petechia, no purpura, no cyanosis, non-pale, not jaundice. Lower extremities: --no - Pitting edema no deformity, no focal swelling, no calf TTP. Makes eye contact. moves all four extremities. Face: no apparent facial droop. Ambulating in the ED independently. ED COURSE: DISCLAIMER: This medical document was created using an electronic medical record system with voice recognition software and computerized dictation system. Although this document has been carefully reviewed, there might still be some phonetic and typographical errors. Occasional wrong-word or "sound-alike" substitutions may have occurred due to the inherent limitations of voice recognition software. These areas are purely typographical due to imperfections of the software programs and do not reflect any compromise in the patient's medical care. Please read the chart carefully and recognize, using context, where these substitutions have occurred. Chief Complaint: Shortness of Breath Time Seen by MD: 23:05 Primary Care Provider: DES Information Source: Patient Mode of Arrival: Ambulatory Past Medical History PAST MEDICAL HISTORY: Asthma, COPD, CVA, HTN Surgical History: [employer] History: No Pertinent [employer] History Family History Family History: Family hx of DM, Family hx of Cancer Social History Smoker: Cigarettes, Less Than 1 Pack/Day Alcohol: Occasionally Drugs: Marijuana Lives In: Home Was a procedure done? Was a procedure done?: No X-Ray, Labs, Meds, VS Vital Signs Date Time Temp Pulse Resp B/P (MAP) Pulse Ox O2 Delivery O2 Flow Rate FiO2 10/27/24 22:03 18 96 Room Air* 0 21 10/27/24 20:33 98.8 92 20 155/92 94 98.8 Lab Test 10/27/24 22:39 10/27/24 21:46 Range/Units Troponin I High Sensitivity Pending 5 </=34 ng/L White Blood Count 11.2 H 4.4-10.8 10^3/uL Red Blood Count 5.00 4.0-5.20 10^6/uL Hemoglobin 15.2 12.2-16.2 g/dL Hematocrit 44.8 36.0-46.0 % Mean Corpuscular Volume 89.6 80.0-100.0 fL Mean Corpuscular Hemoglobin 30.4 28.0-32.0 pg Mean Corpuscular Hemoglobin Concent 33.9 32.0-36.0 g/dL Red Cell Distribution Width 15.1 H 11.8-14.3 % Platelet Count 223 140-450 10^3/uL Mean Platelet Volume 9.7 6.9-10.8 fL Neutrophils (%) (Auto) 55.5 37.0-80.0 % Lymphocytes (%) (Auto) 32.2 10.0-50.0 % Monocytes (%) (Auto) 9.0 0.0-12.0 % Eosinophils (%) (Auto) 2.7 0.0-7.0 % Basophils (%) (Auto) 0.6 0.0-2.0 % Neutrophils # (Auto) 6.2 1.6-8.6 10 ^3/uL Lymphocytes # (Auto) 3.6 0.4-5.4 10 ^3/uL Monocytes # (Auto) 1.0 0-1.3 10 ^3/uL Eosinophils # (Auto) 0.3 0-0.8 10 ^3/uL Basophils # (Auto) 0.1 0-0.2 10 ^3/uL Nucleated Red Blood Cells 0.1 % Sodium Level 143 136-145 mmol/L Potassium Level 4.0 3.5-5.1 mmol/L Chloride Level 107 98-107 mmol/L Carbon Dioxide Level 29 20-31 mmol/L Anion Gap 7 5-15 Blood Urea Nitrogen 27 H 9-23 mg/dL Creatinine 0.94 0.550-1.02 mg/dL Glomerular Filtration Rate Calc 64 >90 mL/min BUN/Creatinine Ratio 28.7 H 10.0-20.0 Serum Glucose 100 74-106 mg/dL Calcium Level 9.9 8.7-10.4 mg/dL Total Bilirubin 0.7 0.2-1.0 mg/dL Aspartate Amino Transferase (AST) 16 13-40 U/L Alanine Aminotransferase (ALT) 17 7-40 U/L Alkaline Phosphatase 55 46-116 U/L B-Type Natriuretic Peptide 9.10 0-100 pg/mL Total Protein 8.0 5.7-8.2 g/dL Albumin 4.8 3.2-4.8 g/dL Current Medications Medications (Trade) Dose Ordered Sig/Jorge Alberto Route Start Time Stop Time Status Last Admin Albuterol (Ventolin Medneb) 2.5 mg ONCE ONCE NEB 10/27/24 21:30 10/27/24 21:31 DC 10/27/24 21:52 Ipratropium [place] (Atrovent Medneb) 1 mg ONCE ONCE NEB 10/27/24 21:30 10/27/24 21:31 DC 10/27/24 21:52 Time of 1ST Reevaluation: 23:02 Reevaluation 1ST: Unchanged Patient Education/Counseling: Diagnosis, Treatment Family Education/Counseling: No Family Present SEPSIS Sepsis Screen Date sepsis recognized/suspect: Oct 27, 2024 Time Sepsis recognized/suspect: 2032 Recent Procedure: No On Antibiotic Therapy: No Respiratory Rate >20: No Heart Rate >90: No Temp<36 C (96.8 F) or >38.3 C: No SBP <90 or MAP <65 mmHG: No New Acute Mental Status Change: No Is the patient on CPAP, BIPAP,: No Physician Orders Cannoneer (10/27/24 ) Chest Portable (10/27/24 21:22) Electrocardigram (10/27/24 21:22) Troponin-I Hs (10/27/24 22:22) Troponin-I Hs (10/28/24 00:22) Vital Signs Date Time Temp Pulse Resp B/P (MAP) Pulse Ox O2 Delivery O2 Flow Rate FiO2 10/27/24 22:03 18 96 Room Air* 0 21 10/27/24 20:33 98.8 92 20 155/92 94 98.8 Laboratory Tests Test 10/27/24 21:46 White Blood Count 11.2 10^3/uL (4.4-10.8) H Medications Medications Dose Ordered Sig/Jorge Alberto Route Start Time Stop Time Status Last Admin Dose Admin Albuterol 2.5 mg ONCE ONCE NEB 10/27/24 21:30 10/27/24 21:31 DC 10/27/24 21:52 Ipratropium [place] 1 mg ONCE ONCE NEB 10/27/24 21:30 10/27/24 21:31 DC 10/27/24 21:52 Departure 1 Departure Time of Disposition: 23:07 Impression: Primary Impression: COPD exacerbation Additional Impression: Medication refill Disposition: HOME / SELF CARE / HOMELESS Condition: Stable Additional Instructions: Additional instructions: You MUST follow-up with your primary care/family doctor in 1 to 2 days. If you are unable to see your primary care/family doctor, please return to our emergency room for re-assessment and re-evaluation in 1 to 2 days. Return to the emergency room here in our facility or to the nearest ER [facility] if your symptoms change or worsen. CONSULTATIONS: you MUST Follow-up for consultation as soon as possible with: --pulmonology in 1-2 days. You MUST call the consultants office yourself to make an appointment. You may need to arrange that through your insurance and/or your primary/family doctor. If you are unable to see the [facility] consultant in 1 to 2 days, you must return to our emergency room (or any other ER of your choice) for re-assessment and re- evaluation. Adequate fluid hydration. Please fish bait picker your prescription from the pharmacy as prescribed. Quit smoking. Discharged With: Self, Relative Critical Care Note Critical Care Time?: No I personally scribed for KATHERINE DEAN DO ([email or web address]) on 10/27/24 at 23:05. Electronically submitted by René Justice ([email or web address]). KATHERINE DEAN DO Oct 27, 2024 23:05
[2024-10-27] MEDS: methylPREDNISolone SOD SUCC 125 MG/2 ML VL IV ONE (23:20)
--- NOTE | 2024-10-28 07:11 | ECG ---
[facility] Test Date: 2024-10-27 Test Time: 20:37:26 Pat Name: CASPER MERINO Department: [facility] ED Patient ID: [id number] Room: Gender: F Account Director: KENJI : 1950 Requested By: KATHERINE DEAN Order Number: [id number] Reading MD: Measurements Intervals [place] Rate: 91 P: 84 VA: 144 QRS: 53 QRSD: 76 T: 42 QT: 344 QTc: 424 Interpretive Statements Sinus rhythm Atrial premature complex Consider right atrial enlargement Please click the below link to view image of tracing.
== END 2024-10-27 23:35 | disposition home or self-care (01) ==
LOC: EDBD 20:33 → ER 20:33
DX: J44.1 Chronic obstructive pulmonary disease with (acute) exacerbation (principal); Z76.0 Encounter for issue of repeat prescription; F17.210 Nicotine dependence, cigarettes, uncomplicated; Z79.899 Other long term (current) drug therapy
CPT/HCPCS: 36415; 71045; 80053; 83880; 84484; 85025; 93005; 94640; 96374; 99285; J2919